=== PATIENT | female | born 1985 | race Hispanic/Latino ===

== ENCOUNTER 2018-04-18 09:00 | Emergency (ER) | payer BC, SELFPAY ==
[2018-04-18 10:34] LABS: #Basophils 0.1 thou/uL (0.0-0.2); #Eosinphils 0.2 thou/uL (0.0-0.7); #Lymphocytes 1.9 thou/uL (1.20-3.40); #Monocytes 0.4 thou/uL (0.11-0.59); #Neutrophils 4.6 thou/uL (1.40-6.50); %Basophils 1.4 % (0.0-1.0); %Eosinophils 3.4 % (0.0-10.0); %Lymphocytes 26.3 % (21.0-51.0); %Monocytes 5.6 % (0.0-10.0); %Neutrophils 63.3 % (42.0-75.0); Hemoglobin 12.8 g/dL (12.0-16.0); Mean Corpuscular HGB CONC 32.7 g/dL (32.0-36.0); Mean Corpuscular Hemoglobin 30.1 pg (27.0-31.0); Mean Corpuscular Volume 92.1 fL (78.0-98.0); Mean Platelet Volume 8.2 fL (7.4-10.4); Platelet Count 338 thou/uL (130-400); RBC Distribution Width 10.9 % (11.5-14.5); Red Blood Cell (RBC) Count 4.24 mill/uL (4.20-5.40); White Blood Cell (WBC) Count 7.2 thou/uL (4.8-10.8)
--- NOTE | 2018-04-18 10:46 | ULT ---
PELVIC ULTRASOUND: Date: 04/18/18 HISTORY: Evaluate for possible miscarriage. Vaginal bleeding. COMPARISON: None. TECHNIQUE: Transabdominal and endovaginal imaging of the uterus is performed. Ovaries are interrogated with Rivers scale, color flow, Doppler imaging, and spectral waveform analysis. FINDINGS: Uterus is identified, without myometrial masses. Uterus measures 8.3 x 4.7 x 5.9 cm. Endometrium has a homogeneous echotexture, measuring 0.6 cm. There is no evidence of a gestational sa c, yolk sac, or pole. Left ovary has a normal echotexture, measuring 3.4 x 3.2 x 2.8 cm. Anechoic focus in the right ovary likely representing a 2.7 x 2.7 x 2.5 cm cyst. Overall, the right o vary measures 3.8 x 2.9 x 2.9 cm. There is no free fluid. Nonspecific mildly dilated vessels in the left adnexa and right adnexa. Anechoic focus in lower uterine segment is presumed to represent a nabothian cyst. There is no free fluid. Ovarian Doppler: Vascular flow to the right and left ovary. IMPRESSION: 1. No sonographic evidence of an intrauterine gestation. Differential considerations include an anthony y intrauterine versus a missed spontaneous versus a sonographically occult ectopic . Follow-up ultrasound and serial beta HCGs are recommended. 2. Right ovary cyst. Follow-up imaging in 8 weeks to ensure resolution. 3. Nonspecific dilatation of vessels in the left and right adnexa. Correlate with CREATIVE STRATEGIST consultation. POS: [facility]
== END 2018-04-18 11:24 | disposition home or self-care (01) ==
LOC: ERS 09:00
DX: O03.9 Complete or unspecified spontaneous abortion without complication (principal); E03.9 Hypothyroidism, unspecified
CPT/HCPCS: 36415; 76856; 84702; 85025; 86900; 86901

== ENCOUNTER 2018-12-01 11:02 | Emergency (ER) | payer SELFPAY | END 2018-12-01 12:00 | disposition home or self-care (01) | LOC: ERS 11:02 | DX: J30.9 Allergic rhinitis, unspecified (principal); E03.9 Hypothyroidism, unspecified | CPT/HCPCS: 99282 ==

== ENCOUNTER 2019-05-28 11:16 | Day surgery (SDC) | payer OTHER ==
[2019-05-28 12:08] VITALS: BP 101/63; TEMP 98.2; BMI 29.8
[2019-05-28] MEDS ORDERED: FLU VACC QS2019-20(6MOS UP)/PF 60 MCG/0.5 ML SYRINGE IM ONE (12:45)
[2019-05-28] MEDS ORDERED: hydrALAZINE 20 MG/ML VIAL SLOW IVP PRN (12:50)
--- NOTE | 2019-05-28 12:53 | PDOC.FPROB ---
FMR OB H&P: HPI - History of Present Illness Chief Complaint: Contractions Indentification: 33 year old at 37.0 wks History of Present Illness: 33 year old at 37.0 wks presents with contractions since last night. Patient states contractions occurring every 15-20 minutes last night. She states they were painful and made it difficult to sleep. Patient states that contractions have become closer together, occurring every 8-10 minutes. She is able to walk and breathe through them currently. Patient denies any vaginal bleeding, vaginal discharge, LoF. She endorses good movement. Primary Care Physician: Dr. Rollins FMR OB H&P: Current - Care : 4 Para: 2011 Gestational age: 37.0 wks Due date: 06/18/2019 FMR OB H&P: History - Past Medical History PMH: Denies - OB History OB History: SAB x1 - TRANSPLANT COORDINATOR History TRANSPLANT COORDINATOR History: Denies history of STD's - Surgical History Sx History: Denies - Social History Social History: Denies history of alcohol, tobacco, or drug use FMR OB H&P: Medications - Current Home Medications: Medication Instructions Recorded Confirmed Type Vit No.129/Iron/Folic 1 each PO DAILY 05/28/19 05/28/19 History [ Tablet] Allergies/Adverse Reactions: Allergies Allergy/AdvReac Type Severity Reaction Status Date / Time No Known Allergies Allergy Verified 05/28/19 12:00 FMR OB H&P: ROS - Review of Systems General: denies: fever/chills, weight/appetite/sleep changes Eyes: denies: vision changes, scotomas ENT: denies: nasal congestion, sore throat Cardiovascular: denies: chest pain, palpitation, edema Respiratory: denies: cough, congestion, shortness of breath Gastrointestinal: reports: abdominal pain Genitourinary (Female): reports: contractions Musculoskeletal: denies: pain, stiffness Neurologic: denies: numbness, syncope Integumentary: denies: itching, rash Hematologic/Lymphatic: denies: prolonged or excessive bleeding Psychological: denies: depression, anxiety FMR OB H&P: Vital Signs - Maternal Vital signs: Vital Signs - First Documented Temp Pulse Resp BP 98.2 F 88 18 101/63 05/28/19 11:35 05/28/19 11:35 05/28/19 11:35 05/28/19 11:35 - Heart Tones Baseline: 130 Variability: moderate Acceleration: present Deceleration: absent Category: category 1 [place] contractions every: q8 min FMR OB H&P: Physical Exam - Physical Exam General: NAD, awake, alert and oriented HEENT: MMM, grossly normal vision, grossly normal hearing Heart: RRR, pulses present General: no respiratory distress, no wheezing Abdomen: soft, gravid, non-tender Musculoskeletal: pulses present, FROM in all four extremities Neurological: no tremor, no focal deficit Skin: no rash, capillary refill <2 seconds Lymphatic: no unusual bruising or bleeding, no purpura Psychiatric: intact recent and remote memory, good judgement and insight, normal mood and affect - Pelvic Exam SVE: 1/thick/high FMR OB H&P: A/P - Problem List (1) Term Status: Acute Code(s): Z34.90 - ENCNTR FOR SUPRVSN OF NORMAL , UNSP, UNSP TRIMESTER Disposition: 33 year old at 37.0 wks Term IUP - Contractions, q8 min - SVE 1/thick/high, posterior - Category I strip - No OB complications - No indication for admission at this time; discussed that patient only 1 cm with posterior cervix. She may be in early labor, but this can last anywhere from hours to days. Encouraged patient to drink plenty of water, as dehydration can also lead to contractions. Return precautions provided. Patient only lives 10 minutes from hospital. She has follow up appt with Dr. Rollins on Wed. Dispo: D/c home with return labor precautions. Discussion: Date/Time: 05/28/19 1252 This H&P was discussed with Dr. Thapa who agrees with the above documentation and plan. Signature: Cony New DO PGY-3 Addendum - Attending - Attending Attestation Date/Time: 05/29/19 8675 I personally evaluated the patient and discussed the management with Dr. New I agree with the History, Examination, Assessment and Plan documented above with any addition or exceptions noted below.
== END 2019-05-28 12:58 | disposition home or self-care (01) ==
LOC: L&D/OP 11:16
PROVIDERS: ATTEND Family Medicine
DX: O47.1 False labor at or after 37 completed weeks of gestation (principal); Z3A.37 37 weeks gestation of pregnancy
CPT/HCPCS: 99282

== ENCOUNTER 2019-05-29 13:18 | Inpatient (IN) | payer OTHER ==
[2019-05-29] MEDS ORDERED: hydrALAZINE 20 MG/ML VIAL SLOW IVP PRN ×2 (14:37→17:32)
[2019-05-29 14:42] VITALS: BMI 29.8
[2019-05-29] MEDS ORDERED: Lactated Ringer's 1,000 ML IV SCH ×3 (14:45→21:30)
--- NOTE | 2019-05-29 15:02 | HP ---
TIME: 1435. LOCATION: Labor and Delivery Triage in bed A. Patient of Dr. Rollins. REASON FOR EVALUATION: Suspected contractions and "not feeling well." HISTORY OF PRESENT ILLNESS: In brief, this is a 33-year-old , G4, P2, at 37 weeks and [address] days, who sees Dr. Rollins. The patient states that she was seen yesterday for irregular contractions and was 1 cm, and sent home. She denies having fevers yesterday. She states that she felt hot, but did not check her own temperature yesterday. She does not have any known sick contacts. She did not get the flu shot this season. In Labor and Delivery Triage, her temperature was 101 at max. She states that she does have some cough and chills at night, but she denied any cough symptoms now. She denies leakage of fluid or any purulent cough, or purulent vaginal discharge. REVIEW OF SYSTEMS: The patient does state again that she has had some cough at night and some chills. She denies recent travel or otherwise sick contacts. PAST OB HISTORY: She has been 4 times, including this one, and she has two previous term vaginal deliveries. She had one miscarriage in the past. MEDICATIONS: None. ALLERGIES: NONE. SOCIAL HISTORY: Negative for alcohol, tobacco, or drug use. PHYSICAL EXAMINATION: VITAL SIGNS: Her temperature is 101, her blood pressure is 98/54, pulse is 110. GENERAL: She is sick appearing, but does not appear acutely ill. She is alert and oriented. ABDOMEN: Soft and nontender. I performed a cervical examination and find her cervix to be 1 cm dilated, 50% effaced, -2 station. There is no evidence of vaginal bleeding or rupture of membranes. On external monitor, heart rate is slightly tachycardic at 160 to 170. There is good moderate variability. There are no decelerations. Contractions on tocodynamometer about every 3 to 5 minutes, but they are irregular. ASSESSMENT: This is a patient, who is a 33-year-old, G4, P2, at 37 weeks and 0 days with fever of unknown source, with a T-max of 101. I have concern for early sepsis, NOS. PLAN: 1. I have ordered a flu swab. 2. I have ordered a CBC. 3. I have ordered a CMP. 4. I have ordered a catheterized UA. 5. I have ordered 1 L of LR bolus. 6. I have ordered continuous monitoring. 7. I have ordered pulse ox and her pulse ox on room air is 98%. 8. Given the patient has a flu, we will offer her Tamiflu and offer conservative management. If I have no other source of her fever (negative urine and negative flu), I may consider a chest x-ray. If that is clear or we have no overt source of infection, we will assume chorioamnionitis and we will offer plan of induction. I have discussed this with her. Reason for induction would be fever of unknown origin with tachycardia. For now, we will see if she responds to IV fluids and Tylenol. 9. I have also ordered a serum lactate to see if she is acidotic. Job ID: [id number]
--- NOTE | 2019-05-29 15:41 | PDOC.EVN ---
Event Note - Event Note Event Note: Lab Check: Influenza negative
[2019-05-29 16:37] LABS: #Lymphocytes 0.6 thou/uL (1.20-3.40); #Monocytes 1.2 thou/uL (0.11-0.59); #Neutrophils 9.3 thou/uL (1.40-6.50); %Basophils 0.3 % (0.0-1.0); %Eosinophils 0.1 % (0.0-10.0); %Lymphocytes 5.8 % (21.0-51.0); %Monocytes 10.3 % (0.0-10.0); %Neutrophils 83.5 % (42.0-75.0); Hemoglobin 8.8 g/dL (12.0-16.0); Mean Corpuscular HGB CONC 34.3 g/dL (32.0-36.0); Mean Corpuscular Hemoglobin 28.8 pg (27.0-31.0); Mean Platelet Volume 8.2 fL (7.4-10.4); Platelet Count 177 thou/uL (130-400); RBC Distribution Width 12.5 % (11.5-14.5); Red Blood Cell (RBC) Count 3.05 mill/uL (4.20-5.40); White Blood Cell (WBC) Count 11.2 thou/uL (4.8-10.8)
[2019-05-29 16:58] LABS: ALT (SGPT) 11 U/L (8-55); AST (SGOT) 15 U/L (5-34); Albumin 2.8 g/dL (3.5-5.0); Alkaline Phosphatase 126 U/L (40-110); Anion Gap 13 mmol/L (10-20); BUN (Urea Nitrogen) 5 mg/dL (7.0-18.7); Bilirubin, Total 0.6 mg/dL (0.2-1.2); Calc. Creatinine Clearance 138 mL/min (70-130); Calcium 7.9 mg/dL (7.8-10.44); Carbon Dioxide 19 mmol/L (22-29); Chloride 105 mmol/L (98-107); Estimated GFR-MDRD Greater than 90; Globulin 2.7 g/dL (2.4-3.5); Glucose 94 mg/dL (70-105); Potassium 3.1 mmol/L (3.5-5.1); Protein, Total 5.5 g/dL (6.0-8.3); Sodium 134 mmol/L (136-145)
[2019-05-29 17:10] LABS: Bacteria/HPF 4+ HPF (None Seen); Bilirubin Negative (Negative); Blood, Urine 1+ (Negative); Clarity Extra Turbid (Clear); Glucose, Urine (Dipstick) Normal (Negative); Leukocyte 500 Leu/uL (Negative); Nitrite 2+ (Negative); Protein, Urine (Dipstick) 100 mg/dL (Neg-Trace); Squamous Epithelial 0-3 HPF (0-3); Urobilinogen Normal mg/dL (Less than 2); WBC/HPF Greater than 50 HPF (0-3)
[2019-05-29 17:16] LABS: Urine Culture Reflex Yes Yes
--- NOTE | 2019-05-29 17:30 | PDOC.EVN ---
Event Note - Event Note Event Note: Lactate is negative. CBC with WBC 11 UA by cath: 4+ bacteria, urine culture pending. Will admit to Dr Rollins for pyelo suspected
[2019-05-29] MEDS ORDERED: Promethazine HCl 25 MG/ML VIAL IM PRN (17:32)
[2019-05-29] MEDS ORDERED: Butorphanol Tartrate 1 MG/ML VIAL SLOW IVP PRN (17:32)
[2019-05-29] MEDS ORDERED: Ondansetron PF 4 MG/2 ML Vial IVP PRN (17:32)
[2019-05-29] MEDS ORDERED: Gentamicin Sulfate 120 MG in Premix Bag 1 BAG IVPB SCH (18:15)
[2019-05-29 20:12] LABS: HBSAg Index 0.18 S/CO (0-0.99); HIV (1/2) Antibody/Antigen Non-Reactive (NonReactive); HIV 1/2 INDEX 0.16 S/CO (<1.00); Hep B Surf Ag Non-Reactive S/CO (NonReactive); Syphilis Antibody Nonreactive (Nonreactive); Syphilis Antibody Index 0.02 S/CO (<1.00 Non-Reactive)
[2019-05-29] MEDS: cefTRIAXone\\ROCEPHIN 2 GM in Sodium Chloride 0.9% 100 ML IVPB SCH (20:12)
[2019-05-29] MEDS: Acetaminophen 500 MG TAB PO PRN (20:17)
[2019-05-29] MEDS: Sodium Chloride 0.9% 1,000 ML IV SCH (23:30)
[2019-05-30] MEDS ORDERED: Lactated Ringer's 1,000 ML IV SCH (02:15)
[2019-05-30] MEDS: Gentamicin Sulfate 80 MG in Premix Bag 1 BAG IVPB SCH ×3 (03:08→18:41)
[2019-05-30] MEDS: Acetaminophen 500 MG TAB PO PRN ×3 (03:11→19:47)
[2019-05-30] MEDS: Sodium Chloride 0.9% 1,000 ML IV SCH ×3 (08:00→14:03)
[2019-05-30] MEDS: Ampicillin 2 GM in Sodium Chloride 0.9% 100 ML IVPB SCH ×2 (15:11→22:25)
[2019-05-30] MEDS ORDERED: Bicitra 30 ML UDCUP ONE (16:08)
[2019-05-30] MEDS ORDERED: Oxytocin 10 UNITS/ML VIAL ONE ×2 (16:18→16:49)
[2019-05-30] MEDS ORDERED: MORPHINE 5 MG/10 ML PF VIAL ONE (16:18)
[2019-05-30 17:01] LABS: Actual Bicarbonate (HCO3a) 19.3 mEq/L (22-28); Base Excess (BEa) -6.9 mEq/L (-2.0 to +3.0)
[2019-05-30 17:04] LABS: Actual Bicarbonate (HCO3v) 18 mEq/L (22-28); Base Excess -6.7 mEq/L (-2.0 to +3.0); pH (Cord, venous) 7.36 (7.32-7.43)
--- NOTE | 2019-05-30 17:43 | PDOC.OPDEL ---
OB Operative/Delivery Note Delivery Dr/Surgeon: Ritchie Rollins Pre-Delivery Diagnosis: non-reassuring tracing Procedure/Post Delivery Dx: primary low transverse CS Anesthesia: spinal - Additional Findings/Plan Compilations/Other Findings: Procedure Note Date of Procedure: 05/30/19 Resident Surgeon: Odette Dugan MD, PGY2 Attending Surgeon: Dr. Eder Rollins Procedure: Primary low transverse caesarean section Preoperative Diagnosis: 1)Term intrauterine at 37 wga 2)Non reassuring status 3)Pyelonephritis 4)Suspected intraamniotic infection Postoperative Diagnosis: 1-4) Same Anesthesia: spinal Indications: The patient is a 33 year old female at 37.0 weeks gestation admitted for pyelonephritis 2 days ago, who presents for a primary c section due to non reassuring heart tones/ persistant tachycardia and recurrent late decelerations with an unfavorable cervix Procedure in Detail: After risks, benefits, and alternatives were explained to the patient, she gave informed consent. The patient was taken to the operating room and spinal anesthesia was initiated. She was placed in the supine position with a left tilt and prepped and draped in usual sterile fashion. A Pfannenstiel incision was made with a scalpel and carried down to the level of the fascia which was sharply nicked. The fascial cut was extended bilaterally with Whalen sissors. The inferior and superior edges of the cut fascial edges were elevated with Paula clamps and the underlying rectus muscles were sharply and bluntly dissected free. The recti were divided digitally and retracted manually. The peritoneum was entered bluntly and retracted manually. Bladder blade was placed. A low transverse score was made with the scalpel and the uterus was entered in the midline with the scalpel. Clear fluid was seen. The hysterotomy was extended manually. The infant was noted to be vertex and was easily delivered by fundal pressure. Mouth and nares were bulb suctioned. Cord clamped after 30 second delay and cut and grossly normal female infant was handed to waiting nurse. Cord blood and gas was obtained. Placenta was manually extracted , found to be intact with 3 vessel cord and discarded. The uterus was externalized and the endometrium was curetted with a dry lap. The bladder blade was replaced and the uterus was closed with a running locking 0-monocryl . Following this hemostasis was noted. The abdomen was irrigated with saline and suctioned free of clots. Seprafilm applied on hysterotomy.The uterus was internalized and the hysterotomy was again noted to be hemostatic. The peritoneum was closed with 3-0 vicryl. The fascia was closed with a running non- locking 0-PDS suture. The subcutaneous tissue was irrigated and bleeding coagulated with elctrocautery and was found to be no bleeders. The subcutaneous tissue was approximated with suture. The skin was approximated with jay. All counts were correct. The patient tolerated the procedure well and was taken to the recovery room in stable condition. Estimated Blood Loss: 400mL. Complications: None Specimens: Placenta to path; Cord blood sent to lab for blood type and gas Findings: Grossly normal female with Apgars of 8and 9. Grossly normal placenta with 3 vessel cord discarded. Drains: Osborn to gravity draining clear urine
[2019-05-30] MEDS ORDERED: NS / Oxytocin 40 units/1000ml 1,000 ML ONE (19:25)
[2019-05-30] MEDS ORDERED: Meperidine HCl/PF 25 MG/ML VIAL IM PRN (19:43)
[2019-05-30] MEDS ORDERED: Promethazine HCl 25 MG/ML VIAL IM PRN ×2 (19:43→21:22)
[2019-05-30] MEDS ORDERED: hydrALAZINE 20 MG/ML VIAL SLOW IVP PRN (19:43)
[2019-05-30] MEDS ORDERED: Bisacodyl 10 MG SUPP PR PRN (19:43)
[2019-05-30] MEDS ORDERED: Lanolin Ointment 7 GM TUBE TOP PRN (19:43)
[2019-05-30] MEDS ORDERED: HYDROcodone/Acetaminophen 5/325 mg Tablet PO PRN ×2 (19:43)
[2019-05-30] MEDS ORDERED: NS / Oxytocin 40 units/1000ml 1,000 ML IV SCH (19:43)
[2019-05-30] MEDS ORDERED: Ondansetron PF 4 MG/2 ML Vial IVP PRN ×2 (19:43→21:22)
[2019-05-30] MEDS ORDERED: diphenhydrAMINE 25 MG CAP PO PRN (19:43)
[2019-05-30] MEDS: Ibuprofen 800 MG TAB PO SCH (20:04)
[2019-05-30] MEDS: cefTRIAXone\\ROCEPHIN 2 GM in Sodium Chloride 0.9% 100 ML IVPB SCH (20:13)
[2019-05-30] MEDS ORDERED: diphenhydrAMINE 50 MG/ML VIAL IVP PRN (21:22)
[2019-05-30] MEDS ORDERED: Naloxone HCl 0.4 mg/ml Vial IVP PRN ×2 (21:22)
[2019-05-30] MEDS ORDERED: Ketorolac Tromethamine 30 MG/ML VIAL IVP PRN (21:22)
[2019-05-30] MEDS ORDERED: Promethazine HCl 25 MG SUPP PR PRN (21:22)
[2019-05-30] MEDS ORDERED: Naloxone HCl 0.4 mg/ml Vial IV PRN (21:22)
[2019-05-30] MEDS ORDERED: Communication Order-Pharmacy FS SCH (21:30)
[2019-05-30] MEDS: Docusate Calcium (SURFAK) 240 MG CAP PO SCH (22:27)
[2019-05-30] MEDS: Simethicone Chewable 80 MG TAB PO PRN (22:27)
[2019-05-31] MEDS: Gentamicin Sulfate 80 MG in Premix Bag 1 BAG IVPB SCH (02:23)
[2019-05-31] MEDS: Ampicillin 2 GM in Sodium Chloride 0.9% 100 ML IVPB SCH (03:44)
[2019-05-31] MEDS: Sodium Chloride 0.9% 1,000 ML IV SCH (03:45)
[2019-05-31] MEDS: Ibuprofen 800 MG TAB PO SCH ×4 (05:23→22:22)
[2019-05-31 06:42] LABS: Hemoglobin 7.5 g/dL (12.0-16.0); Mean Corpuscular HGB CONC 33.6 g/dL (32.0-36.0); Mean Corpuscular Hemoglobin 28.7 pg (27.0-31.0); Mean Corpuscular Volume 85.6 fL (78.0-98.0); Mean Platelet Volume 8.3 fL (7.4-10.4); Platelet Count 173 thou/uL (130-400); RBC Distribution Width 12.5 % (11.5-14.5); Red Blood Cell (RBC) Count 2.61 mill/uL (4.20-5.40); White Blood Cell (WBC) Count 7.6 thou/uL (4.8-10.8)
[2019-05-31] MEDS ORDERED: Adacel (T-DAP) 0.5 ML SYRINGE IM ONE (09:00)
[2019-05-31] MEDS: Ferrous Sulfate 325 MG TAB PO SCH ×2 (09:14→16:07)
[2019-05-31] MEDS: Docusate Calcium (SURFAK) 240 MG CAP PO SCH ×2 (09:14→22:23)
[2019-05-31] MEDS: Simethicone Chewable 80 MG TAB PO PRN ×2 (09:49→16:10)
[2019-05-31] MEDS: HYDROcodone/Acetaminophen 5/325 mg Tablet PO PRN ×3 (11:48→22:23)
[2019-05-31] MEDS ORDERED: Sodium Chloride 0.9% 10 ML ONE (17:29)
[2019-05-31] MEDS: cefTRIAXone\\ROCEPHIN 2 GM in Sodium Chloride 0.9% 100 ML IVPB SCH (17:35)
[2019-06-01] MEDS: HYDROcodone/Acetaminophen 5/325 mg Tablet PO PRN ×4 (03:47→21:05)
[2019-06-01] MEDS: Ferrous Sulfate 325 MG TAB PO SCH ×2 (07:48→17:14)
[2019-06-01] MEDS: Ibuprofen 800 MG TAB PO SCH ×3 (07:48→21:05)
[2019-06-01] MEDS: Docusate Calcium (SURFAK) 240 MG CAP PO SCH ×2 (07:49→21:07)
[2019-06-01] MEDS: Simethicone Chewable 80 MG TAB PO PRN (10:07)
[2019-06-01] MEDS ORDERED: Ondansetron ODT 8 MG TAB PO PRN (12:27)
[2019-06-01] MEDS: cefTRIAXone\\ROCEPHIN 2 GM in Sodium Chloride 0.9% 100 ML IVPB SCH (15:12)
[2019-06-01] MEDS: Cephalexin 250 MG CAP PO SCH ×2 (17:14→23:49)
[2019-06-02] MEDS: HYDROcodone/Acetaminophen 5/325 mg Tablet PO PRN ×3 (01:32→13:19)
[2019-06-02] MEDS: Cephalexin 250 MG CAP PO SCH ×2 (05:42→11:29)
[2019-06-02] MEDS: Ibuprofen 800 MG TAB PO SCH ×2 (05:42→13:17)
[2019-06-02] MEDS: Ferrous Sulfate 325 MG TAB PO SCH (08:13)
[2019-06-02] MEDS: Docusate Calcium (SURFAK) 240 MG CAP PO SCH (08:14)
[2019-06-02 08:51] VITALS: BP 107/54; TEMP 97.8
--- NOTE | 2019-06-05 10:22 | PQF ---
Quoc Banegasil BIGG ALMODOVAR [id number] CLINICAL DOCUMENTATION CLARIFICATION FORM: POST DISCHARGE Addendum to original discharge summary date: ___After admission, care was by Dr Rollins Late entry note date: 06/05/19 DATE: 06/05/2019 ATTN: BIGG ALMODOVAR Please exercise your independent, professional judgment in responding to the clarification form. Clinical indicators are provided on the bottom of this form for your review Please check appropriate box(s) to clarify if the following diagnosis has been ruled in or ruled out: SEPSIS [ ] Ruled in diagnosis [ ] Continue to treat [ ] Resolved [ ] Ruled out diagnosis [ ] Cannot rule out diagnosis [ ] Other diagnosis [ x ] Unable to determine.... I did not provide care for this patient after admission, so I cannot answer. These should be answered by Dr Rollins For continuity of documentation, please document condition throughout progress notes and discharge summary. Thank You. CLINICAL INDICATORS - SIGNS / SYMPTOMS / LABS - I have concern for early sepsis NOS-H&P, 05/28SCOOBY HECTOR - Fever unknown source- H&P, 05/28, BIGG ALMODOVAR - Temp: 101, BP:98/54, Pulse: 110- H&P, 05/28SCOOBY HECTOR - WBC: 11.2H on 05/28- Laboratory report - suspected intraamniotic infection- OP report, 05/29, Eder Rollins MD RISK FACTORS - Pyelonephritis- OP report, 05/29, Eder Rollins MD TREATMENTS - Rocephin.IV- MAR, 05/28 to 06/01 (This form is maintained as a part of the permanent medical record) 2014 [employer] All Rights Reserved [email or web address]
--- NOTE | 2019-06-05 22:56 | PQF ---
Pallavi Banegas ROLAND R MD [id number] CLINICAL DOCUMENTATION CLARIFICATION FORM: POST DISCHARGE Addendum to original discharge summary date: ____ Late entry note date: __ DATE:06/05/2019 ATTN:EDER ROLLINS MD Please exercise your independent, professional judgment in responding to the clarification form. Clinical indicators are provided on the bottom of this form for your review Please check appropriate box(s) to clarify if the following diagnosis has been ruled in or ruled out: SEPSIS [ X ] Ruled in diagnosis [ ] Continue to treat [ X ] Resolved [ ] Ruled out diagnosis [ ] Cannot rule out diagnosis [ X ] Other diagnosis ____pyelonephritis, chorioamnionitis [ ] Unable to determine For continuity of documentation, please document condition throughout progress notes and discharge summary. Thank You. CLINICAL INDICATORS - SIGNS / SYMPTOMS / LABS - I have concern for early sepsis NOS-H&P, 05/28, Indio Ramos - Fever unknown source- H&P, 05/28, Indio Ramos - Temp: 101, BP: 98/54, Pulse: 110-H&P, 05/28, Indio Ramos - WBC: 11.2H on 05/28- Laboratory report, -suspected intraamniotic infection- OP report, 05/29, Eder Rollins MD RISK FACTORS - Pyelonephritis-OP report, 05/29, Ayo Gaines MD TREATMENTS -Rocephin.IV- MAR, 05/28 to 06/01 (This form is maintained as a part of the permanent medical record) 2014 [employer] All Rights Reserved [email or web address]
== END 2019-06-02 16:42 | disposition home or self-care (01) | DRG 786 ==
LOC: LAB 13:18 → L&D 13:19 → 3SW 21:02 → L&D 05-30 16:20 → 3SW 05-30 21:07
PROVIDERS: ADMIT Family Medicine; ATTEND Family Medicine
PROC: 10D00Z1 Extraction of Products of Conception, Low, Open Approach (ICD-10-PCS; principal; 2019-05-30)
DX: O76 Abnormality in fetal heart rate and rhythm complicating labor and delivery (principal); O75.3 Other infection during labor; A41.9 Sepsis, unspecified organism; O41.1230 Chorioamnionitis, third trimester, not applicable or unspecified; O23.03 Infections of kidney in pregnancy, third trimester; N12 Tubulo-interstitial nephritis, not specified as acute or chronic; Z3A.37 37 weeks gestation of pregnancy; Z37.0 Single live birth
CPT/HCPCS: 36415; 51702; 59025; 80053; 81001; 82805; 83605; 85025; 85027; 86780; 86850; 86900; 86901; 87070; 87077; 87086; 87186; 87205; 87340; 87389; 87804; 88307; 99285; J0290; J0690; J0696; J1580; J1885; J2274; J2590; J3490

== ENCOUNTER 2022-01-21 17:30 | Emergency (ER) | payer OTHER ==
[2022-01-21 19:07] LABS: SARS-CoV-2 NAA Rapid Test Not Detected (NotDetected)
== END 2022-01-21 19:29 | disposition home or self-care (01) ==
LOC: ERS 17:30
DX: B34.9 Viral infection, unspecified (principal); Z20.822 Contact with and (suspected) exposure to COVID-19
CPT/HCPCS: 99283